=== PATIENT | female | born 1970 | race Caucasian/White ===

== ENCOUNTER → 2016-08-14 | Outpatient (CLI) | payer BC ==
[2016-08-14 09:58] LABS: HEMOGLOBIN 12.7 gm/dl (12.3-15.3); RED BLOOD COUNT 4.5 M/UL (4.00-5.10); WHITE BLOOD COUNT 4.9 K/UL (4.5-11.0)
[2016-08-14 10:41] LABS: BUN/CREATININE RATIO 17 (0-10)
== END ==
LOC: LAB 09:16
PROVIDERS: Internal Medicine
DX: Z02.89 Encounter for other administrative examinations (principal); E55.9 Vitamin D deficiency, unspecified; Z79.899 Other long term (current) drug therapy; I10 Essential (primary) hypertension; E78.5 Hyperlipidemia, unspecified
CPT/HCPCS: 36415; 80053; 80061; 84439; 84443; 85025

== ENCOUNTER → 2020-04-23 | Outpatient (CLI) | payer BC ==
[~2020-04-23] MED LIST: LEVAQUIN750 MG PO; LIPITOR TAB 1010 MG PO; METOPROLOL SUCC25 MG PO; TAMOXIFEN CITRA20 MG PO; ZOFRAN4 MG PO
[2020-04-23 11:50] LABS: HEMOGLOBIN 12.6 gm/dl (12.3-15.3); RED BLOOD COUNT 4.38 M/UL (4.00-5.10); WHITE BLOOD COUNT 5.8 K/UL (4.5-11.0)
[2020-04-23 12:03] LABS: BUN/CREATININE RATIO 21 (0-10)
== END ==
LOC: LAB 10:25
PROVIDERS: Internal Medicine
DX: E78.5 Hyperlipidemia, unspecified (principal); E55.9 Vitamin D deficiency, unspecified; I10 Essential (primary) hypertension
CPT/HCPCS: 80053; 80061; 84439; 84443; 85025

== ENCOUNTER → 2020-05-02 | Outpatient (CLI) | payer BC | LOC: RAD 16:49 | DX: M25.512 Pain in left shoulder (principal); M19.012 Primary osteoarthritis, left shoulder | CPT/HCPCS: 73030 ==

== ENCOUNTER → 2020-10-14 | Outpatient (CLI) | payer BC ==
[2020-10-14 08:44] LABS: HEMOGLOBIN 13.7 gm/dl (12.3-15.3); RED BLOOD COUNT 4.73 M/UL (4.00-5.10); WHITE BLOOD COUNT 5.7 K/UL (4.5-11.0)
[2020-10-14 09:10] LABS: BUN/CREATININE RATIO 17 (0-10)
== END ==
LOC: LAB 08:05
PROVIDERS: Internal Medicine
DX: E78.5 Hyperlipidemia, unspecified (principal); I10 Essential (primary) hypertension; E55.9 Vitamin D deficiency, unspecified; Z79.899 Other long term (current) drug therapy
CPT/HCPCS: 36415; 80053; 80061; 84439; 84443; 85025

== ENCOUNTER → 2021-04-17 | Outpatient (CLI) | payer BC ==
[2021-04-17 12:07] LABS: HEMOGLOBIN 13.4 gm/dl (12.3-15.3); RED BLOOD COUNT 4.71 M/UL (4.00-5.10); WHITE BLOOD COUNT 8.3 K/UL (4.5-11.0)
[2021-04-17 12:29] LABS: BUN/CREATININE RATIO 14 (0-10)
== END ==
LOC: LAB 10:35
PROVIDERS: Internal Medicine
DX: E78.5 Hyperlipidemia, unspecified (principal); I10 Essential (primary) hypertension; Z79.899 Other long term (current) drug therapy
CPT/HCPCS: 36415; 80053; 80061; 84439; 84443; 85025

== ENCOUNTER → 2021-08-20 | Outpatient (CLI) | payer BC ==
[2021-08-20 09:40] LABS: HEMOGLOBIN 13.3 gm/dl (12.3-15.3); RED BLOOD COUNT 4.69 M/UL (4.00-5.10); WHITE BLOOD COUNT 8.3 K/UL (4.5-11.0)
[2021-08-21 08:38] LABS: BUN/CREATININE RATIO 24 (0-10)
[2021-08-23 08:14] LABS: CHOLESTEROL, TOTAL 169 mg/dL (100-199); HDL CHOLESTEROL 76 mg/dL (>39); LDL CHOLESTEROL CALC 84 mg/dL (0-99); LDL/HDL RATIO 1.1 ratio (0.0-3.2); T. CHOL/HDL RATIO 2.2 ratio (0.0-4.4); TRIGLYCERIDES 44 mg/dL (0-149)
== END ==
LOC: LAB 09:03
PROVIDERS: Internal Medicine
DX: E78.5 Hyperlipidemia, unspecified (principal); I10 Essential (primary) hypertension; E55.9 Vitamin D deficiency, unspecified; Z79.899 Other long term (current) drug therapy
CPT/HCPCS: 80053; 80061; 84439; 84443; 85025